=== PATIENT | female | born 1980 | race Asian ===

== ENCOUNTER 2021-02-15 09:24 | Observation (INO) | payer SELFPAY ==
[~2021-02-15] VITALS: Ht 162.6 cm; Wt 61.2 kg
== END 2021-02-15 15:10 | disposition home or self-care (01) ==
LOC: SPU 09:24 → INTOOBSV 09:24
PROVIDERS: ADMIT Obstetrics & Gynecology; ATTEND Obstetrics & Gynecology
DX: O36.5930 Maternal care for other known or suspected poor fetal growth, third trimester, not applicable or unspecified (principal); O13.3 Gestational [pregnancy-induced] hypertension without significant proteinuria, third trimester; Z3A.38 38 weeks gestation of pregnancy
CPT/HCPCS: 76805; G0378

== ENCOUNTER 2021-02-24 03:45 | Inpatient (IN) | payer SELFPAY ==
[~2021-02-24] VITALS: Ht 162.6 cm; Wt 61.7 kg
[2021-02-24] MEDS ORDERED: TERBUTALINE SULFATE 1 MG/ML VIAL SUBCUT ONE (04:15)
[2021-02-24] MEDS ORDERED: LR 1,000 ML IV SCH (04:15)
[2021-02-24] MEDS ORDERED: NALBUPHINE HCL 10 MG/ML AMP IVP PRN (04:15)
[2021-02-24 06:10] VITALS: BP_SYST 138
[2021-02-24 06:12] LABS: HEMATOCRIT 38.7 % (36-48); HEMOGLOBIN 12.9 g/dL (12.0-16.0); MEAN CORPUSCULAR HGB CONC 33 % (32-36)
[2021-02-24 06:17] LABS: BASOPHILS # (AUTO) 0.2 K/uL (0.0-0.2); BASOPHILS % (AUTO) 1.6 % (0.0-2.0); EOSINOPHILS # (AUTO) 0.1 K/uL (0.0-0.4); EOSINOPHILS % (AUTO) 0.5 % (0.0-4.0); LYMPHOCYTES # (AUTO) 0.5 K/uL (1.0-5.5); LYMPHOCYTES % (AUTO) 4.2 % (20.5-51.5); MEAN CORPUSCULAR HEMOGLOBIN 31 pg (27-31); MEAN CORPUSCULAR VOLUME 93 fL (79.0-98.0); MONOCYTES # (AUTO) 0.5 K/uL (0.0-1.0); NEUTROPHILS # (AUTO) 10.5 K/uL (1.8-7.7); NEUTROPHILS % (AUTO) 89.7 % (40.0-70.0); PLATELET COUNT (AUTO) 210 K/uL (130-430); RED BLOOD CELL COUNT(AUTO) 4.17 MIL/uL (4.2-6.2); WHITE BLOOD COUNT (AUTO) 11.7 K/uL (4.8-10.8)
[2021-02-24 07:22] LABS: ALBUMIN 2.8 g/dL (3.4-4.8); CALCIUM 8.9 mg/dL (8.4-11.0); CREATININE 0.65 mg/dL (0.55-1.30); POTASSIUM 3.3 mmol/L (3.5-5.1); TOTAL BILIRUBIN 0.5 mg/dL (0.0-1.0)
[2021-02-24] MEDS ORDERED: OXYTOCIN/0.9 % SODIUM CHLORIDE 1,000 ML IV ONE ×2 (07:57→11:45)
[2021-02-24] MEDS ORDERED: DERMOPLAST SPRAY TP PRN (10:30)
[2021-02-24] MEDS ORDERED: WITCH HAZEL LEAF 1 MED.PAD MED.PAD TP PRN (10:30)
[2021-02-24] MEDS ORDERED: OXYTOCIN/0.9 % SODIUM CHLORIDE 1,000 ML IV SCH (11:45)
[2021-02-24] MEDS ORDERED: LANOLIN 7 GM OINT. TP PRN (11:45)
[2021-02-24] MEDS ORDERED: DOCUSATE SODIUM 100 MG CAPSULE PO ONE (11:45)
[2021-02-24] MEDS ORDERED: OXYCODONE/ACETAMINOPHEN 5-325 TABLET PO PRN ×2 (11:45)
[2021-02-24] MEDS ORDERED: HYDROcodone/ACETAMIN 5-325 MG TAB (NORCO/ VICODIN) PO PRN (11:45)
[2021-02-24] MEDS: IBUPROFEN 600 MG TABLET PO SCH ×2 (12:00→18:00)
[2021-02-24] MEDS ORDERED: SENNOSIDES/DOCUSATE SODIUM 1 TAB TABLET(SENOKOT-S) PO SCH (21:00)
[2021-02-25] MEDS: IBUPROFEN 600 MG TABLET PO SCH
[2021-02-25 07:35] LABS: HEMATOCRIT 32.4 % (36-48)
[2021-02-25] MEDS ORDERED: DOCUSATE SODIUM 100 MG CAPSULE PO SCH (09:00)
[2021-02-25] MEDS ORDERED: LIDOCAINE PF 1% 30ML(POUR BTL) INJ ONE (14:09)
[2021-02-25] MEDS ORDERED: MINERAL OIL 30 ML UDC PO ONE (14:09)
[2021-02-27 19:06] LABS: FTA-Ab (T PALLIDUM) Non Reactive (Non Reactive)
== END 2021-02-25 14:10 | disposition home or self-care (01) | DRG 807 ==
LOC: OBSVTOIN 03:45 → SPU 03:45
PROVIDERS: ADMIT Obstetrics & Gynecology; ATTEND Obstetrics & Gynecology
PROC: 10E0XZZ Delivery of Products of Conception, External Approach (ICD-10-PCS; principal; 2021-02-24)
DX: O13.4 Gestational [pregnancy-induced] hypertension without significant proteinuria, complicating childbirth (principal); Z37.0 Single live birth; O69.81X0 Labor and delivery complicated by cord around neck, without compression, not applicable or unspecified; O77.0 Labor and delivery complicated by meconium in amniotic fluid; O36.5930 Maternal care for other known or suspected poor fetal growth, third trimester, not applicable or unspecified; O76 Abnormality in fetal heart rate and rhythm complicating labor and delivery; Z3A.39 39 weeks gestation of pregnancy; Z20.822 Contact with and (suspected) exposure to COVID-19
CPT/HCPCS: 36415; 80053; 85018; 85025; 86592; 86780; 86886; 86900; 86901; J2001; J2590